=== PATIENT | female | born 1955 | race Caucasian/White ===

== ENCOUNTER 2016-05-14 12:18 | Emergency (ER) | payer OTHER ==
--- NOTE | 2016-05-14 15:15 | EDDOCDS ---
Nurse's Notes [facility] Name: Pratik Khoury Age: 61 yrs Sex: Female : 1955 Arrival Date: 05/14/2016 Time: 12:18 Bed TR8 Private MD: Johnna Hunter A Diagnosis: Pain in right hip-due to fall injury Presentation: 05/14 12:25 Presenting complaint: Patient states: Fell and landed on Right hip last week. pain rs3 radiates from right buttock to toes next day after the fall. Tried heat/Excedrin. not helped with pain. Adult Sepsis Screening: The patient does not have new or worsening altered mentation. Patient's respiratory rate is less than 22. Systolic blood pressure is greater than 100. Patient has a qSOFA score of 0- Negative Sepsis Screen. Suicide/Homicide risk assessment- the patient denies having any suicidal and/or homicidal ideations and does not present with any other emotional, behavioral or mental health complaints. Status: Patient is not a executive services administrator or dependent. Transition of care: patient was not received from another setting of care. 12:25 Acuity: PARMJIT Level 4 rs3 12:25 Method Of Arrival: Walkin/Carried/Asstd rs3 Triage Assessment: 12:28 General: Appears in no apparent distress. Pain: Location: right gluteus kecia. HIV rs3 screening NA for this visit Offered previously. Historical: - Allergies: PENICILLINS (Rash); Pvpxroj-Ysf-Cot Reductase Inhibitors (muscle cramping); - Home Meds: 1. Avapro 75 mg Oral tab once daily 2. Zoloft 50 mg Oral tab 1 tab once daily - PMHx: Depression; Hypertension; - PSHx: Hysterectomy; Oophorectomy - Left; Appendectomy; - Social history: Smoking status: Patient states former smoker of tobacco. No barriers to communication noted, The patient speaks fluent Argentine. - Family history: Not pertinent. - : The pt / caregiver states he / she is not on anticoagulants. Home medication list is obtained from family members. - Exposure Risk Screening:: None identified. Screenin:13 Screening information is obtained from the patient. Fall risk: No risks identified. rs3 Assistance ADL's: requires no assistance with activities of daily living. Abuse/DV Screen: The patient / caregiver reports he/she is: not in a situation that causes fear, pain or injury. Nutritional screening: No deficits noted. Advance Directives: Currently, there is no health care proxy. home support is adequate. Assessment: 15:12 General: Appears in no apparent distress, Behavior is appropriate for age, cooperative. rs3 Pain: Location: right gluteus kecia. Neurological: No deficits noted. Cardiovascular: Capillary refill < 3 seconds. Respiratory: Airway is patent. Derm: Skin is pink, warm & dry. Musculoskeletal: Signs and Symptoms of Compartment Syndrome: no signs of compartment syndrome. Vital Signs: 12:19 BP 158 / 86; Pulse 65; Resp 18 S; Temp 98.1(O); Pulse Ox 100% on R/A; Weight 76.66 kg dd6 (R); Height 5 ft. 0 in. (152.40 cm) (R); 12:19 Body Mass Index 33.01 (76.66 kg, 152.40 cm) dd6 Vitals: 12:19 Log In Time: May 14, 2016 at 12:17. dd6 ED Course: 12:18 Patient visited by Maykel Nava PCA. dd6 12:18 Johnna Hunter is Private Physician. dd6 12:18 Patient moved to Waiting dd6 12:20 Patient moved to Pre RCE dd6 12:27 Triage Initiated rs3 13:30 Patient moved to Triage 2 ar3 13:33 [facility] ef1 13:33 Fabiola Gilmore MD is Attending Physician. ef1 13:33 Patient visited by Carolynn Sotelo PA-C. ef1 14:08 Patient visited by Carolynn Sotelo PA-C. ef1 14:11 Johnna Hunter is Referral Physician. ef1 14:11 [facility]. ef1 14:17 Patient moved to [address] 14:26 [facility] Payment Agreement was scanned into [employer] and attached to record. mm15 15:13 The patient / caregiver is instructed regarding the plan of care and ED course. rs3 15:13 No IV's were initiated during this patient's visit. No procedures done that require rs3 assistance. Order Results: There are currently no results for this order. Outcome: 14:11 Discharge ordered by Provider. ef1 15:13 Discharge Assessment: patient administered narcotics - no. The following High Risk rs3 Discharge criteria are identified: None. Discharged to home with family. Condition: stable. Discharge instructions given to patient, Instructed on discharge instructions, follow up and referral plans. medication usage, Demonstrated understanding of instructions, medications, Pt was receptive of discharge instructions/ teaching. Prescriptions given X 3. No special radiology studies were completed. Property :Personal belongings accompany Pt. 15:13 Patient left the ED. rs3 Signatures: Nevaeh Hernandez, Maykel Mcmanus RN, SALES AGENT PROTECTIVE SERVICE SALES AGENT PROTECTIVE SERVICE dd6 Carolynn Sotelo PA-C PAJacindaC ef1 Dominique Garza RN RN rs3 Brianna Dunne, SALES AGENT PROTECTIVE SERVICE SALES AGENT PROTECTIVE SERVICE ar3 Ismael Castelan mm15 MTDD
--- NOTE | 2016-05-14 15:15 | EDDOCDS ---
Physician Documentation [facility] [place] Name: Pratik Khoury Age: 61 yrs Sex: Female : 1955 Arrival Date: 05/14/2016 Time: 12:18 Bed TR8 Private MD: Johnna Hunter A Disposition: 05/14/16 14:11 Discharged to Home/Self Care. Impression: Pain in right hip - due to fall injury. - Condition is Stable. - Discharge Instructions: Hip Pain. - Prescriptions for [place] 5- 325 mg Oral Tablet - take 1 tablet by ORAL route every 6 hours As needed MDD: 4 tabs; 10 tablet. Zanaflex 4 mg Oral Tablet - take 1 tablet by ORAL route At bedtime As needed Will cause drowsiness, do not take while driving/operating heavy machinery.; 20 tablet. Prednisone 20 mg Oral Tablet - take 2 tablet by ORAL route once daily for 5 days; 10 tablet. - Medication Reconciliation, Local Pharmacy Hours form. - Follow up: Johnna Hunter; When: 1 - 2 days; Reason: Recheck today's complaints, Continuance of care. Follow up: Emergency Department; Reason: Worsening of conditions. Follow up: [facility]; When: Call to arrange an appointment; Reason: Further diagnostic work-up, Recheck today's complaints, Continuance of care. - Problem is new. - Symptoms are unchanged. Historical: - Allergies: PENICILLINS (Rash); Npvpbgz-Bra-Yuj Reductase Inhibitors (muscle cramping); - Home Meds: 1. Avapro 75 mg Oral tab once daily 2. Zoloft 50 mg Oral tab 1 tab once daily - PMHx: Depression; Hypertension; - PSHx: Hysterectomy; Oophorectomy - Left; Appendectomy; - Social history: Smoking status: Patient states former smoker of tobacco. No barriers to communication noted, The patient speaks fluent Slovenian. - Family history: Not pertinent. - : The pt / caregiver states he / she is not on anticoagulants. Home medication list is obtained from family members. - Exposure Risk Screening:: None identified. Vital Signs: 05/14 12:19 BP 158 / 86; Pulse 65; Resp 18 S; Temp 98.1(O); Pulse Ox 100% on R/A; Weight 76.66 kg / dd6 169.01 lbs (R); Height 5 ft. 0 in. (152.40 cm) (R); 12:19 Body Mass Index 33.01 (76.66 kg, 152.40 cm) dd6 MDM: 12:34 Hip,AP,LAT to include Pelvis Ordered. EDMS 13:49 Financial registration complete. mm15 14:26 [facility] Payment Agreement was scanned into [employer] and attached to record. mm15 Signatures: Dispatcher [employer] EDMS Carolynn Sotelo, ALEJANDRO PAArnol ef1 Dominique Garza RN RN rs3 Ismael Castelan mm15 The chart was reviewed and I authenticate all verbal orders and agree with the evaluation and treatment provided.Attachments: 14:26 [facility] Payment Agreement mm15 MTDD
--- NOTE | 2016-05-15 11:16 | REP ---
Right hip two views and AP pelvis single view: Right hip two views: There is no fracture or dislocation. Mineralization joint space are normal. No calcifications or foreign bodies. Impression: Negative right hip. AP pelvis: There are no pelvic fractures. The sacroiliac articulations and right and left hip articulations are unremarkable. There are calcifications, likely phleboliths. Signed by Aidan Neves MD 05/14/2016 01:06 P
--- NOTE | 2016-05-16 16:15 | EDDOCDS ---
Physician Documentation [facility] Name: Pratik Khoury Age: 61 yrs Sex: Female : 1955 Arrival Date: 05/14/2016 Time: 12:18 Bed TR8 Private MD: Johnna Hunter A Disposition: 05/14/16 14:11 Discharged to Home/Self Care. Impression: Pain in right hip - due to fall injury. - Condition is Stable. - Discharge Instructions: Hip Pain. - Prescriptions for [place] 5- 325 mg Oral Tablet - take 1 tablet by ORAL route every 6 hours As needed MDD: 4 tabs; 10 tablet. Zanaflex 4 mg Oral Tablet - take 1 tablet by ORAL route At bedtime As needed Will cause drowsiness, do not take while driving/operating heavy machinery.; 20 tablet. Prednisone 20 mg Oral Tablet - take 2 tablet by ORAL route once daily for 5 days; 10 tablet. - Medication Reconciliation, Local Pharmacy Hours form. - Follow up: Johnna Hunter; When: 1 - 2 days; Reason: Recheck today's complaints, Continuance of care. Follow up: Emergency Department; Reason: Worsening of conditions. Follow up: [facility]; When: Call to arrange an appointment; Reason: Further diagnostic work-up, Recheck today's complaints, Continuance of care. - Problem is new. - Symptoms are unchanged. Historical: - Allergies: PENICILLINS (Rash); Mzjtcii-Els-Jcm Reductase Inhibitors (muscle cramping); - Home Meds: 1. Avapro 75 mg Oral tab once daily 2. Zoloft 50 mg Oral tab 1 tab once daily - PMHx: Depression; Hypertension; - PSHx: Hysterectomy; Oophorectomy - Left; Appendectomy; - Social history: Smoking status: Patient states former smoker of tobacco. No barriers to communication noted, The patient speaks fluent Tajik. - Family history: Not pertinent. - : The pt / caregiver states he / she is not on anticoagulants. Home medication list is obtained from family members. - Exposure Risk Screening:: None identified. Vital Signs: 05/14 12:19 BP 158 / 86; Pulse 65; Resp 18 S; Temp 98.1(O); Pulse Ox 100% on R/A; Weight 76.66 kg / dd6 169.01 lbs (R); Height 5 ft. 0 in. (152.40 cm) (R); 12:19 Body Mass Index 33.01 (76.66 kg, 152.40 cm) dd6 MDM: 12:34 Hip,AP,LAT to include Pelvis Ordered. EDMS 13:49 Financial registration complete. mm15 14:26 [facility] Payment Agreement was scanned into [employer] and attached to record. mm15 20:52 T-Sheet-- Draft Copy was scanned into [employer] and attached to record. klr Signatures: Dispatcher [employer] EDMS Carolynn Sotelo, PAJacindaC PA-C ef1 Dominique GarzaRN RN rs3 Ismael Castelan mm15 Kiah Bowie klr The chart was reviewed and I authenticate all verbal orders and agree with the evaluation and treatment provided.Attachments: 14:26 [facility] Payment Agreement mm15 20:52 T-Sheet-- Draft Copy klr Chart Complete MTDD
--- NOTE | 2016-05-16 16:15 | EDDOCDS ---
Physician Documentation [facility] Name: Pratik Khoury Age: 61 yrs Sex: Female : 1955 Arrival Date: 05/14/2016 Time: 12:18 Bed TR8 Private MD: Johnna Hunter A Disposition: 05/14/16 14:11 Discharged to Home/Self Care. Impression: Pain in right hip - due to fall injury. - Condition is Stable. - Discharge Instructions: Hip Pain. - Prescriptions for [place] 5- 325 mg Oral Tablet - take 1 tablet by ORAL route every 6 hours As needed MDD: 4 tabs; 10 tablet. Zanaflex 4 mg Oral Tablet - take 1 tablet by ORAL route At bedtime As needed Will cause drowsiness, do not take while driving/operating heavy machinery.; 20 tablet. Prednisone 20 mg Oral Tablet - take 2 tablet by ORAL route once daily for 5 days; 10 tablet. - Medication Reconciliation, Local Pharmacy Hours form. - Follow up: Johnna Hunter; When: 1 - 2 days; Reason: Recheck today's complaints, Continuance of care. Follow up: Emergency Department; Reason: Worsening of conditions. Follow up: [facility]; When: Call to arrange an appointment; Reason: Further diagnostic work-up, Recheck today's complaints, Continuance of care. - Problem is new. - Symptoms are unchanged. Historical: - Allergies: PENICILLINS (Rash); Tiybibw-Dvn-Jia Reductase Inhibitors (muscle cramping); - Home Meds: 1. Avapro 75 mg Oral tab once daily 2. Zoloft 50 mg Oral tab 1 tab once daily - PMHx: Depression; Hypertension; - PSHx: Hysterectomy; Oophorectomy - Left; Appendectomy; - Social history: Smoking status: Patient states former smoker of tobacco. No barriers to communication noted, The patient speaks fluent Kinyarwanda. - Family history: Not pertinent. - : The pt / caregiver states he / she is not on anticoagulants. Home medication list is obtained from family members. - Exposure Risk Screening:: None identified. Vital Signs: 05/14 12:19 BP 158 / 86; Pulse 65; Resp 18 S; Temp 98.1(O); Pulse Ox 100% on R/A; Weight 76.66 kg / dd6 169.01 lbs (R); Height 5 ft. 0 in. (152.40 cm) (R); 12:19 Body Mass Index 33.01 (76.66 kg, 152.40 cm) dd6 MDM: 12:34 Hip,AP,LAT to include Pelvis Ordered. EDMS 13:49 Financial registration complete. mm15 14:26 [facility] Payment Agreement was scanned into [employer] and attached to record. mm15 20:52 T-Sheet-- Draft Copy was scanned into [employer] and attached to record. klr Signatures: Dispatcher [employer] EDMS Carolynn Sotelo, PAJacindaC PA-C ef1 Dominique GarzaRN RN rs3 Ismael Castelan mm15 Kiah Bowie klr The chart was reviewed and I authenticate all verbal orders and agree with the evaluation and treatment provided.Attachments: 14:26 [facility] Payment Agreement mm15 20:52 T-Sheet-- Draft Copy klr Chart Complete MTDD
--- NOTE | 2016-05-16 16:15 | EDDOCDS ---
Nurse's Notes [facility] Name: Pratik Khoury Age: 61 yrs Sex: Female : 1955 Arrival Date: 05/14/2016 Time: 12:18 Bed TR8 Private MD: Johnna Hunter A Diagnosis: Pain in right hip-due to fall injury Presentation: 05/14 12:25 Presenting complaint: Patient states: Fell and landed on Right hip last week. pain rs3 radiates from right buttock to toes next day after the fall. Tried heat/Excedrin. not helped with pain. Adult Sepsis Screening: The patient does not have new or worsening altered mentation. Patient's respiratory rate is less than 22. Systolic blood pressure is greater than 100. Patient has a qSOFA score of 0- Negative Sepsis Screen. Suicide/Homicide risk assessment- the patient denies having any suicidal and/or homicidal ideations and does not present with any other emotional, behavioral or mental health complaints. Status: Patient is not a information services assistant or dependent. Transition of care: patient was not received from another setting of care. 12:25 Acuity: PARMJIT Level 4 rs3 12:25 Method Of Arrival: Walkin/Carried/Asstd rs3 Triage Assessment: 12:28 General: Appears in no apparent distress. Pain: Location: right gluteus kecia. HIV rs3 screening NA for this visit Offered previously. Historical: - Allergies: PENICILLINS (Rash); Lskiyxu-Mog-Uul Reductase Inhibitors (muscle cramping); - Home Meds: 1. Avapro 75 mg Oral tab once daily 2. Zoloft 50 mg Oral tab 1 tab once daily - PMHx: Depression; Hypertension; - PSHx: Hysterectomy; Oophorectomy - Left; Appendectomy; - Social history: Smoking status: Patient states former smoker of tobacco. No barriers to communication noted, The patient speaks fluent Montenegrin. - Family history: Not pertinent. - : The pt / caregiver states he / she is not on anticoagulants. Home medication list is obtained from family members. - Exposure Risk Screening:: None identified. Screenin:13 Screening information is obtained from the patient. Fall risk: No risks identified. rs3 Assistance ADL's: requires no assistance with activities of daily living. Abuse/DV Screen: The patient / caregiver reports he/she is: not in a situation that causes fear, pain or injury. Nutritional screening: No deficits noted. Advance Directives: Currently, there is no health care proxy. home support is adequate. Assessment: 15:12 General: Appears in no apparent distress, Behavior is appropriate for age, cooperative. rs3 Pain: Location: right gluteus kecia. Neurological: No deficits noted. Cardiovascular: Capillary refill < 3 seconds. Respiratory: Airway is patent. Derm: Skin is pink, warm & dry. Musculoskeletal: Signs and Symptoms of Compartment Syndrome: no signs of compartment syndrome. Vital Signs: 12:19 BP 158 / 86; Pulse 65; Resp 18 S; Temp 98.1(O); Pulse Ox 100% on R/A; Weight 76.66 kg dd6 (R); Height 5 ft. 0 in. (152.40 cm) (R); 12:19 Body Mass Index 33.01 (76.66 kg, 152.40 cm) dd6 Vitals: 12:19 Log In Time: May 14, 2016 at 12:17. dd6 ED Course: 12:18 Patient visited by Maykel Nava PCA. dd6 12:18 Johnna Hunter is Private Physician. dd6 12:18 Patient moved to Waiting dd6 12:20 Patient moved to Pre RCE dd6 12:27 Triage Initiated rs3 13:30 Patient moved to Triage 2 ar3 13:33 [facility] ef1 13:33 Fabiola Gilmore MD is Attending Physician. ef1 13:33 Patient visited by Carolynn Sotelo PA-C. ef1 14:08 Patient visited by Carolynn Sotelo PA-C. ef1 14:11 Johnna Hunter is Referral Physician. ef1 14:11 [facility]. ef1 14:17 Patient moved to TR8 jjr 14:26 [facility] Payment Agreement was scanned into [employer] and attached to record. mm15 15:13 The patient / caregiver is instructed regarding the plan of care and ED course. rs3 15:13 No IV's were initiated during this patient's visit. No procedures done that require rs3 assistance. 20:52 T-Sheet-- Draft Copy was scanned into [employer] and attached to record. klr 05/15 11:20 Hip,AP,LAT to include Pelvis Returned. EDMS Order Results: Radiology Order: Hip,AP,LAT to include Pelvis Test: Hip,AP,LAT to include Pelvis REASON FOR EXAMINATION: Trauma; Right hip two views and AP pelvis single view:; ; Right hip two views:; ; There is no fracture or dislocation. Mineralization joint space are normal. No; calcifications or foreign bodies.; ; Impression:; ; Negative right hip.; ; ; ; AP pelvis:; ; There are no pelvic fractures. The sacroiliac articulations and right and left; hip articulations are unremarkable.; ; There are calcifications, likely phleboliths.; ; ; Signed by; Aidan Neves MD 05/14/2016 01:06 P; Outcome: 05/14 14:11 Discharge ordered by Provider. ef1 15:13 Discharge Assessment: patient administered narcotics - no. The following High Risk rs3 Discharge criteria are identified: None. Discharged to home with family. Condition: stable. Discharge instructions given to patient, Instructed on discharge instructions, follow up and referral plans. medication usage, Demonstrated understanding of instructions, medications, Pt was receptive of discharge instructions/ teaching. Prescriptions given X 3. No special radiology studies were completed. Property :Personal belongings accompany Pt. 15:13 Patient left the ED. rs3 Signatures: Dispatcher [employer] EDCA Nevaeh Hernandez, Maykel Mcmanus RN, CARBON PAPER COATING MACHINE SETTER CARBON PAPER COATING MACHINE SETTER dd6 Carolynn Sotelo PA-C PAArnol ef1 Dominique Garza RN RN rs3 Brianna Dunne, CARBON PAPER COATING MACHINE SETTER CARBON PAPER COATING MACHINE SETTER ar3 Ismael Castelan mm15 Kiah Bowie Chart Complete MTDD
== END 2016-05-14 15:13 | disposition home or self-care (01) ==
LOC: M ED 12:18
DX: M25.551 Pain in right hip (principal); Z91.81 History of falling; I10 Essential (primary) hypertension; F32.9 Major depressive disorder, single episode, unspecified; Z79.899 Other long term (current) drug therapy; Z88.0 Allergy status to penicillin; Z88.8 Allergy status to other drugs, medicaments and biological substances; Z87.891 Personal history of nicotine dependence

== ENCOUNTER → 2016-11-29 | Outpatient (REF) | payer OTHER ==
[2016-11-29 15:07] LABS: ANION GAP 10 MEQ/L (8-16); BLOOD UREA NITROGEN 18 MG/DL (7-18); CALCIUM LEVEL 9.4 MG/DL (8.8-10.2); CARBON DIOXIDE LEVEL 26 MEQ/L (21-32); CHLORIDE LEVEL 108 MEQ/L (98-107); CHOLESTEROL LEVEL 215 MG/DL (<200); CREATININE FOR GFR 0.71 MG/DL (0.55-1.02); GLOMERULAR FILTRATION RATE > 60.0 (>45); GLUCOSE, FASTING 123 MG/DL (80-110); PHOSPHORUS LEVEL 3.5 MG/DL (2.5-4.9); POTASSIUM SERUM 4.5 MEQ/L (3.5-5.1); SODIUM LEVEL 144 MEQ/L (136-145); TRIGLYCERIDES LEVEL 165 MG/DL (<150)
== END ==
LOC: M LABDRAW1 10:46
PROVIDERS: ATTEND Nurse Practitioner Family
DX: E78.2 Mixed hyperlipidemia (principal); I10 Essential (primary) hypertension

== ENCOUNTER → 2017-04-22 | Outpatient (CLI) | payer OTHER ==
[2017-04-22 18:03] LABS: BASO # 0.1 10^3/uL (0.0-0.2); BASO % 0.6 % (0.0-1.0); EOS # 0.1 10^3/uL (0.0-0.50); EOS % 1.6 % (0.0-3.0); HEMOGLOBIN 13.1 g/dl (12.0-16.0); IMMATURE GRANULOCYTE % 0.3 % (0-0); LYMPH # 2.2 10^3/uL (1.5-4.5); LYMPH % 27.1 % (24.0-44.0); MEAN CORPUSCULAR HEMOGLOBIN 30.1 pg (27.0-33.0); MEAN CORPUSCULAR VOLUME 94.3 fl (80.0-96.0); MONO # 0.6 10^3/uL (0.0-0.8); MONO % 7.2 % (0.0-5.0); NEUTROPHILS % 63.2 % (36.0-66.0); PLATELET COUNT, AUTOMATED 367 10^3/uL (150-450); RED BLOOD COUNT 4.35 10^6/uL (4.00-5.40); RED CELL DISTRIBUTION WIDTH 12.6 % (11.5-14.5); WHITE BLOOD COUNT 7.9 10^3/uL (4.0-10.0)
[2017-04-22 18:24] LABS: ALBUMIN 4.3 GM/DL (3.2-5.2); ALBUMIN/GLOBULIN RATIO 1.43 (1.00-1.93); ALKALINE PHOSPHATASE 68 U/L (45-117); ALT/SGPT 18 U/L (12-78); ANION GAP 8 MEQ/L (8-16); AST/SGOT 14 U/L (7-37); BILIRUBIN,TOTAL 0.4 MG/DL (0.2-1.0); BLOOD UREA NITROGEN 18 MG/DL (7-18); CALCIUM LEVEL 9.4 MG/DL (8.8-10.2); CARBON DIOXIDE LEVEL 26 MEQ/L (21-32); CHLORIDE LEVEL 110 MEQ/L (98-107); CHOLESTEROL LEVEL 237 MG/DL (<200); CHOLESTEROL RISK RATIO 3.646 (<5); CREATININE FOR GFR 0.71 MG/DL (0.55-1.02); GLOMERULAR FILTRATION RATE > 60.0 (>45); GLUCOSE, FASTING 85 MG/DL (80-110); HDL CHOLESTEROL 65 MG/DL (>40); LDL CHOLESTEROL 147.8 MG/DL (<100); NON-HDL-C 172 MG/DL; POTASSIUM SERUM 4.7 MEQ/L (3.5-5.1); SODIUM LEVEL 144 MEQ/L (136-145); TOTAL PROTEIN 7.3 GM/DL (6.4-8.2); TRIGLYCERIDES LEVEL 121 MG/DL (<150)
== END ==
LOC: M WUC 12:12
DX: I10 Essential (primary) hypertension (principal)
CPT/HCPCS: 80053

== ENCOUNTER → 2017-10-22 | Outpatient (REF) | payer OTHER ==
[2017-10-22 14:27] LABS: ALBUMIN 4.2 GM/DL (3.2-5.2); ANION GAP 7 MEQ/L (8-16); BLOOD UREA NITROGEN 16 MG/DL (7-18); CALCIUM LEVEL 9.1 MG/DL (8.8-10.2); CARBON DIOXIDE LEVEL 28 MEQ/L (21-32); CHLORIDE LEVEL 110 MEQ/L (98-107); CHOLESTEROL LEVEL 211 MG/DL (<200); CHOLESTEROL RISK RATIO 3.459 (<5); CREATININE FOR GFR 0.74 MG/DL (0.55-1.30); GLOMERULAR FILTRATION RATE > 60.0 (>45); GLUCOSE, FASTING 82 MG/DL (70-100); HDL CHOLESTEROL 61 MG/DL (>40); LDL CHOLESTEROL 127.6 MG/DL (<100); NON-HDL-C 150 MG/DL; PHOSPHORUS LEVEL 3.6 MG/DL (2.5-4.9); SODIUM LEVEL 145 MEQ/L (136-145); TRIGLYCERIDES LEVEL 112 MG/DL (<150)
== END ==
LOC: M LABDRAW1 13:10
DX: I10 Essential (primary) hypertension (principal); E78.2 Mixed hyperlipidemia

== ENCOUNTER → 2018-01-21 | Outpatient (CLI) | payer OTHER | LOC: M WHC 08:47 | DX: Z12.31 Encounter for screening mammogram for malignant neoplasm of breast (principal); N60.31 Fibrosclerosis of right breast; N60.32 Fibrosclerosis of left breast | CPT/HCPCS: 77067 ==

== ENCOUNTER 2018-06-21 04:50 | Inpatient (IN) | payer MEDICARE, OTHER ==
[~2018-06-21] VITALS: Ht 152.4 cm; Wt 78.7 kg
[2018-06-21] MEDS ORDERED: IRBE75TA5 PO (05:09)
[2018-06-21] MEDS ORDERED: CHLO125TA PO (05:09)
[2018-06-21 05:50] LABS: BASO # 0.1 10^3/uL (0.0-0.2); BASO % 0.3 % (0.0-1.0); HEMATOCRIT 42.7 % (36.0-47.0); HEMOGLOBIN 14.3 g/dl (12.0-15.5); LYMPH % 5.8 % (24.0-44.0); MEAN CORPUSCULAR HEMOGLOBIN 30.1 pg (27.0-33.0); MEAN CORPUSCULAR HGB CONC 33.5 g/dl (32.0-36.5); MEAN CORPUSCULAR VOLUME 89.9 fl (80.0-96.0); MONO # 0.5 10^3/uL (0.0-0.8); MONO % 2.8 % (0.0-5.0); NEUTROPHILS # 15.5 10^3/uL (1.8-7.7); NEUTROPHILS % 90.6 % (36.0-66.0); PLATELET COUNT, AUTOMATED 399 10^3/uL (150-450); RED BLOOD COUNT 4.75 10^6/uL (4.00-5.40); WHITE BLOOD COUNT 17.1 10^3/uL (4.0-10.0)
[2018-06-21] MEDS ORDERED: MORPHINE 4 MG/ML 1ML VIAL/SYRINGE (J2270) IV ONE (06:00)
[2018-06-21] MEDS ORDERED: METOCLOPRAMIDE INJ 10MG/2ML VIAL (J2765) IV ONE (06:00)
[2018-06-21] MEDS ORDERED: NS 1,000 ML IV ONE (06:00)
--- NOTE | 2018-06-21 06:11 | REP ---
Clinical: Acute chest pain . Comparison: 08/07/2014 . Technique: PA and lateral. Findings: The mediastinum and cardiac silhouette are normal. The lung bernal are clear and without acute consolidation, effusion, or pneumothorax. The skeletal structures are intact and normal. Impression: 1. No acute cardiopulmonary process. Electronically Signed by Hesham Pereira MD 06/21/2018 06:03 A
[2018-06-21 06:17] LABS: ALBUMIN 4.5 GM/DL (3.2-5.2); ALT/SGPT 30 U/L (12-78); BILIRUBIN,DIRECT 0.1 MG/DL (0.0-0.2); BILIRUBIN,TOTAL 0.4 MG/DL (0.2-1.0); BLOOD UREA NITROGEN 18 MG/DL (7-18); CALCIUM LEVEL 9.7 MG/DL (8.8-10.2); CARBON DIOXIDE LEVEL 24 MEQ/L (21-32); CHLORIDE LEVEL 104 MEQ/L (98-107); CPK CREATINE PHOSPHOKINASE 82 U/L (26-192); CREATININE FOR GFR 0.94 MG/DL (0.55-1.30); GLOMERULAR FILTRATION RATE > 60.0 (>45); GLUCOSE, FASTING 179 MG/DL (70-100); LIPASE 71 U/L (73-393); MB/CK RELATIVE INDEX 1.34 (< OR =4); POTASSIUM SERUM 3.4 MEQ/L (3.5-5.1); SODIUM LEVEL 140 MEQ/L (136-145); TOTAL PROTEIN 8.2 GM/DL (6.4-8.2); TROPONIN I < 0.02 NG/ML (< 0.10)
--- NOTE | 2018-06-21 07:14 | ECGEPIP ---
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
[2018-06-21] MEDS ORDERED: ISOVUE-370 76% 100ML VIAL (Q9967) As Ordered ONE (07:41)
[2018-06-21] MEDS: GASTROGRAFIN SOLUTION 30ML PO SCH ×2 (07:44→08:14)
[2018-06-21] MEDS ORDERED: POTASSIUM CHLORIDE 10 MEQ SR TABLET PO ONE (08:00)
--- NOTE | 2018-06-21 09:52 | REP ---
CT ABDOMEN AND PELVIS WITH ORAL AND IV CONTRAST: TECHNIQUE: Axial contrast enhanced images from the lung bases to the pubic symphysis using 100 mL Isovue 370 intravenous contrast material with multiplanar reformations. Visualized lung bases demonstrate no infiltrate. There is a small hiatal hernia. A couple of tiny cysts are seen in the liver. The spleen, adrenals and pancreas appear normal. A couple of tiny renal cysts are noted. There is no hydronephrosis. There are mild atherosclerotic calcification of the abdominal aorta without aneurysm. There is no adenopathy. There is no free air. There is a very small amount of free fluid scattered in the abdomen and pelvis. The gallbladder is grossly unremarkable without biliary dilatation. There is moderate dilatation of the small bowel loops predominately distal jejunum and ileum. There appears to be a zone of transition caliber to a more collapsed appearance of the very distal end of the ileum, with that zone of transition in the right pelvis. Small amount of air and fluid is scattered throughout a nondistended colon. No pelvic mass is seen. IMPRESSION: Findings consistent with distal small bowel obstruction with transition zone in the right pelvis. Very mild scattered free fluid in the abdomen and pelvis. No free air. Electronically Signed by Aidan Lagos MD 06/24/2018 10:56 A
[2018-06-21 10:25] LABS: APPEARANCE, URINE CLEAR (CLEAR); BACTERIA, URINE AUTO NEGATIVE (NEGATIVE); BILIRUBIN, URINE AUTO NEGATIVE (NEGATIVE); BLOOD, URINE BLOOD 1+ (NEGATIVE); COLOR, URINE STRAW (YELLOW); GLUCOSE, URINE (UA) AUTO NEGATIVE (NEGATIVE); KETONE, URINE AUTO NEGATIVE (NEGATIVE); LEUKOCYTE ESTERASE, URINE AUTO NEGATIVE (NEGATIVE); NITRITE, URINE AUTO NEGATIVE (NEGATIVE); PROTEIN, URINE AUTO NEGATIVE (NEGATIVE); RBC, URINE AUTO 3 /HPF (0-3); SQUAMOUS EPITHELIAL CELL UR AU 0 /HPF (0-6); UROBILINOGEN, URINE AUTO 0.2 mg/dL (0.0-2.0); WBC, URINE AUTO 1 /HPF (0-3)
[2018-06-21 10:28] LABS: SPECIFIC GRAVITY URINE AUTO >1.060 (1.002-1.035)
[2018-06-21] MEDS ORDERED: ONDANSETRON 4MG/2ML VIAL (J2405) IV PRN (11:45)
[2018-06-21] MEDS ORDERED: METOCLOPRAMIDE INJ 10MG/2ML VIAL (J2765) IV PRN (11:45)
[2018-06-21] MEDS ORDERED: PROMETHAZINE INJ 25 MG/ML VIAL (J2550) IV PRN (11:45)
[2018-06-21] MEDS ORDERED: MORPHINE 4 MG/ML 1ML VIAL/SYRINGE (J2270) IV PRN (11:45)
[2018-06-21] MEDS ORDERED: VIAC8.5C PO (11:51)
[2018-06-21] MEDS ORDERED: CHLO25TA PO (11:51)
[2018-06-21] MEDS ORDERED: COLA100C5 PO (11:51)
[2018-06-21] MEDS ORDERED: VITMTA PO (11:51)
[2018-06-21] MEDS ORDERED: FLAX10002 PO (11:51)
[2018-06-21] MEDS: MORPHINE 4 MG/ML 1ML VIAL/SYRINGE (J2270) IV PRN ×2 (13:33→18:50)
[2018-06-21 14:10] VITALS: BP 164/70
[2018-06-21] MEDS: NS 1,000 ML IV SCH ×2 (15:00→23:06)
[2018-06-21] MEDS: PANTOPRAZOLE 40MG INJ (PROTONIX) (C9113) IV SCH (15:01)
[2018-06-21] MEDS: CHLORASEPTIC SPRAY MT PRN ×3 (15:01→20:00)
[2018-06-21 16:00] VITALS: BP 166/82
[2018-06-21] MEDS: CEPACOL LOZENGE PO PRN ×4 (16:00→23:06)
--- NOTE | 2018-06-21 18:08 | HPE ---
DATE OF ADMISSION: 06/21/2018 BRIEF HISTORY OF PRESENT ILLNESS: The patient is a 63-year-old female who over the last 4-5 hours prior to admission she had developed severe left-sided abdominal pain, crampy abdominal pain with nausea, vomiting. She stated that the pain radiated up into her chest / epigastric area and was concerned of cardiac issues and thus came into the emergency room for additional treatment. She has not had any diarrhea and no constipation issues. She did have some bowel movements yesterday but developed this acute onset of abdominal pain and discomfort on the day of admission. She has not had any blood per rectum. PERSONAL HISTORY: She has a personal history of hysterectomy for uterine cervical disease has had a previous oophorectomy (bilateral) with a appendectomy. She has history of hypertension, history of depression and has had no previous history of small bowel obstructions. MEDICATIONS: chlorthalidone 12.5 mg by mouth daily, Colace 100 mg by mouth a day, multivitamin one by mouth daily, flaxseed oil 1 by mouth daily, Irbesartan 75 mg by mouth daily, vitamin C tablets. PHYSICAL EXAMINATION: Physical exam reveals a 63-year-old female who looks younger than stated age. HEENT is unremarkable. Neck: Supple without adenopathy. Lungs are clear to auscultation without crackles, wheezes or rhonchi. Heart is regular without murmur. Abdomen is softly distended, nontender without guarding without rebound without peritoneal signs. Extremities: Warm, well-perfused. IMPRESSION AND PLAN: The patient has evidence of a small bowel obstruction on CT scan, seems to be a distal small bowel obstruction. At this point my recommendation is to make the patient nothing by mouth and IV fluids, NG tube of low intermittent suction and we will see how she does over the next 12-24 hours. At this point I am not seeing any evidence of infectious etiology. No white count, no enteritis. No evidence of perforation. However white count is slightly elevated. White count is elevated at this time and will need to see how this comes down. I anticipate this is probably demargination from pain and discomfort and stress associated with this acute onset of discomfort. If the white count is persistently elevated, we may have to consider a infectious etiology as well, although that seems less likely given the presentation on CT scan. At this point her abdominal exam is not consistent with a bowel compromise or peritoneal signs and thus I do feel it is warranted to watch her with an NG tube and keep her.
[2018-06-21 20:00] VITALS: BP 152/73
[2018-06-21 23:14] VITALS: BP 140/67
[2018-06-22] MEDS: CEPACOL LOZENGE PO PRN ×6 (01:06→20:00)
[2018-06-22 04:00] VITALS: BP 144/67
[2018-06-22 07:22] LABS: HEMATOCRIT 39.3 % (36.0-47.0); HEMOGLOBIN 12.6 g/dl (12.0-15.5); MEAN CORPUSCULAR HEMOGLOBIN 30.4 pg (27.0-33.0); MEAN CORPUSCULAR HGB CONC 32.1 g/dl (32.0-36.5); MEAN CORPUSCULAR VOLUME 94.9 fl (80.0-96.0); PLATELET COUNT, AUTOMATED 351 10^3/uL (150-450); RED BLOOD COUNT 4.14 10^6/uL (4.00-5.40); WHITE BLOOD COUNT 9.9 10^3/uL (4.0-10.0)
[2018-06-22 07:40] LABS: BLOOD UREA NITROGEN 15 MG/DL (7-18); CALCIUM LEVEL 8.2 MG/DL (8.8-10.2); CARBON DIOXIDE LEVEL 27 MEQ/L (21-32); CHLORIDE LEVEL 109 MEQ/L (98-107); CREATININE FOR GFR 0.76 MG/DL (0.55-1.30); GLOMERULAR FILTRATION RATE > 60.0 (>45); GLUCOSE, FASTING 104 MG/DL (70-100); POTASSIUM SERUM 3.5 MEQ/L (3.5-5.1); SODIUM LEVEL 142 MEQ/L (136-145)
[2018-06-22 08:00] VITALS: BP 173/81
[2018-06-22] MEDS ORDERED: PILL CRUSHER/CUTTER 1 EACH XX PRN (08:15)
--- NOTE | 2018-06-22 09:26 | REP ---
Acute abdominal series three views including PA chest and supine upright abdomen: PA chest: Comparison is 07/03/2018. I suspect there is a small right pleural effusion as an interval change. Lung bernal otherwise clear. Cardiac size is normal. The krishan, mediastinum, skeletal structures are unremarkable. There is no free subdiaphragmatic air. Impression: Probable small right pleural effusion. Abdomen, supine upright views: There is opacification of the descending colon and sigmoid colon, likely from bowel contrast administered for the abdomen CT dated 06/21/2018. There is moderate distension of proximal small bowel loops. The distal small bowel loops are nondistended. The colon is not distended. There are no air-fluid levels on the upright view. The tip of the nasogastric tube is at the esophagogastric junction. Impression: Nonspecific bowel gas pattern. Electronically Signed by Aidan Neves MD 06/22/2018 09:18 A
[2018-06-22] MEDS: PANTOPRAZOLE 40MG INJ (PROTONIX) (C9113) IV SCH (09:39)
[2018-06-22] MEDS: IRBESARTAN 150 MG TAB PO SCH (09:39)
[2018-06-22] MEDS: CHLORTHALIDONE 12.5MG PER 1/2 TABLET PO SCH ×2 (09:39→19:59)
[2018-06-22] MEDS: NS 1,000 ML IV SCH ×4 (09:39→21:24)
[2018-06-22 12:00] VITALS: BP 135/64
--- NOTE | 2018-06-22 12:29 | IPN ---
DATE OF SERVICE: 06/22/2018 CHIEF COMPLAINT: Small-bowel obstruction. The patient overall seems to be making some adequate progress from x-ray standpoint. She did have a little bit of flatus this morning but no bowel movement. No fevers or chills. States that the abdominal pain was a little bit better although had some cramps later on this morning. White count dropped back to normal this morning and she has been afebrile. On her physical exam, abdomen is less distended and without tenderness. No guarding. No rebound. No peritoneal signs. IMPRESSION AND PLAN: Patient has improvement of her x-ray showing some contrast down into the large bowel all consistent with partial obstruction/starting to resolve her small bowel obstruction. Thus at this point, we will keep her n.p.o. I do feel that her NG tube needs to be moved around a little bit, probably advanced a little bit given its location and will see how she does with this. I anticipate it may be another day or so before we see resolution of her bowel obstruction. She understands our current plan and agrees with NG tube decompression at this time.
[2018-06-22] MEDS: KETOROLAC 30 MG/ML VIAL (J1885) IV PRN (13:32)
[2018-06-22] MEDS: MORPHINE 4 MG/ML 1ML VIAL/SYRINGE (J2270) IV PRN ×2 (14:34→21:15)
[2018-06-22] MEDS: CHLORASEPTIC SPRAY MT PRN (15:12)
[2018-06-22 16:00] VITALS: BP 133/63
[2018-06-22 19:58] VITALS: BP 133/60
[2018-06-22 23:59] VITALS: BP 121/58
[2018-06-23 04:00] VITALS: BP 131/60
[2018-06-23] MEDS: CEPACOL LOZENGE PO PRN ×2 (04:30→12:08)
[2018-06-23 06:50] LABS: MEAN CORPUSCULAR HEMOGLOBIN 30.3 pg (27.0-33.0); MEAN CORPUSCULAR HGB CONC 32.4 g/dl (32.0-36.5); MEAN CORPUSCULAR VOLUME 93.7 fl (80.0-96.0); PLATELET COUNT, AUTOMATED 297 10^3/uL (150-450); RED BLOOD COUNT 3.63 10^6/uL (4.00-5.40); WHITE BLOOD COUNT 10.1 10^3/uL (4.0-10.0)
[2018-06-23 07:03] LABS: BLOOD UREA NITROGEN 12 MG/DL (7-18); CALCIUM LEVEL 7.8 MG/DL (8.8-10.2); CARBON DIOXIDE LEVEL 23 MEQ/L (21-32); CHLORIDE LEVEL 110 MEQ/L (98-107); GLOMERULAR FILTRATION RATE > 60.0 (>45); GLUCOSE, FASTING 72 MG/DL (70-100); POTASSIUM SERUM 3.1 MEQ/L (3.5-5.1); SODIUM LEVEL 141 MEQ/L (136-145)
--- NOTE | 2018-06-23 08:36 | REP ---
Abdomen two-view supine upright: Comparison is 06/22/2018. The tip of the nasogastric tube is in the gastric fundus. There is no bowel distension. The moderate distension of proximal small bowel loops on the comparison study has resolved. There is no colonic distension. The colonic lumen is again opacified from bowel contrast as previously. The skeletal structures and soft tissues are otherwise unremarkable. Impression: There is no bowel distension. The moderate small bowel distension identified on the comparison study has resolved. Electronically Signed by Aidan Neves MD 06/23/2018 08:28 A
[2018-06-23 08:45] VITALS: BP 166/70
[2018-06-23] MEDS: IRBESARTAN 150 MG TAB PO SCH (08:46)
[2018-06-23] MEDS: PANTOPRAZOLE 40MG INJ (PROTONIX) (C9113) IV SCH (08:46)
[2018-06-23] MEDS: CHLORASEPTIC SPRAY MT PRN ×2 (10:00→13:00)
[2018-06-23 12:00] VITALS: BP 158/60
--- NOTE | 2018-06-23 12:26 | IPN ---
DATE OF SERVICE: 06/23/2018 Patient seems to be doing much better overnight. She has had four small bowel movements this morning and states that she has some flatus as well. Does not have any nausea or vomiting. She has been drinking a fair bit of fluids and is wondering if that is where the NG tube increase or persistently high output has been coming from. Otherwise she is not having any nausea, no crampy abdominal pain. Still feels as though she might be a little bit bloated. She is not having any fevers or chills. Although her white count is slightly elevated today at 10,000. But her abdomen is soft, nontender, nondistended. X-rays show that she has "resolved her small bowel obstruction. More air and stool in the colon with contrast in the colon and some of the colon has evacuated the contrast. IMPRESSION AND PLAN: The patient seems to be resolving her small bowel obstruction although at this point given that she is slightly distended and having some increase or persistence of some elevated NG tube output, I would like to clamp her NG tube for the next 4 hours. Will recheck it at that point. I have asked her not drink so much over the next 4 hours and if her NG tube output is minimal at that time, we will take out her NG tube and start her on a clear liquid diet. We will see how she does overnight and probably start her on a regular diet tomorrow and discharge to home if she is doing well.
[2018-06-23] MEDS: NS 1,000 ML IV SCH (12:40)
[2018-06-23] MEDS: KETOROLAC 30 MG/ML VIAL (J1885) IV PRN (15:29)
[2018-06-23 16:00] VITALS: BP 155/67
[2018-06-23 20:00] VITALS: BP 141/61
[2018-06-23] MEDS: CHLORTHALIDONE 12.5MG PER 1/2 TABLET PO SCH (20:36)
[2018-06-24] VITALS: BP 129/60
[2018-06-24 04:00] VITALS: BP 141/65
[2018-06-24 07:56] LABS: HEMATOCRIT 34.4 % (36.0-47.0); HEMOGLOBIN 11.1 g/dl (12.0-15.5); MEAN CORPUSCULAR HEMOGLOBIN 29.9 pg (27.0-33.0); MEAN CORPUSCULAR HGB CONC 32.3 g/dl (32.0-36.5); MEAN CORPUSCULAR VOLUME 92.7 fl (80.0-96.0); PLATELET COUNT, AUTOMATED 308 10^3/uL (150-450); RED BLOOD COUNT 3.71 10^6/uL (4.00-5.40); WHITE BLOOD COUNT 6.1 10^3/uL (4.0-10.0)
[2018-06-24 08:00] VITALS: BP 144/65
[2018-06-24 08:58] LABS: BLOOD UREA NITROGEN 8 MG/DL (7-18); CALCIUM LEVEL 8.3 MG/DL (8.8-10.2); CARBON DIOXIDE LEVEL 24 MEQ/L (21-32); CHLORIDE LEVEL 108 MEQ/L (98-107); CREATININE FOR GFR 0.64 MG/DL (0.55-1.30); GLOMERULAR FILTRATION RATE > 60.0 (>45); GLUCOSE, FASTING 92 MG/DL (70-100); SODIUM LEVEL 141 MEQ/L (136-145)
[2018-06-24 09:00] LABS: POTASSIUM SERUM 2.9 MEQ/L (3.5-5.1)
--- NOTE | 2018-06-24 09:14 | REP ---
Supine upright abdomen three views: Comparison is 06/23/2018. The nasogastric tube has been removed. There are are a few mildly distended small bowel loops with air-fluid levels in the upper abdomen in a nonspecific pattern, possibly ileus. There is no colonic distension. Intraluminal bowel contrast is again noted in the descending colon, decreased in volume. There is mild lumbar scoliosis convex right, unchanged. Impression: Mild nonspecific proximal small bowel distension, possibly ileus. There is no distension of the mid and distal small bowel. The nasogastric tube has been removed. Electronically Signed by Aidan Neves MD 06/24/2018 09:06 A
[2018-06-24] MEDS: PANTOPRAZOLE 40MG INJ (PROTONIX) (C9113) IV SCH (09:18)
[2018-06-24] MEDS: CHLORTHALIDONE 12.5MG PER 1/2 TABLET PO SCH (09:18)
[2018-06-24 09:19] VITALS: BP 144/65
[2018-06-24] MEDS: IRBESARTAN 150 MG TAB PO SCH (09:19)
[2018-06-24] MEDS ORDERED: POTASSIUM CHLORIDE 10 MEQ SR TABLET PO ONE (10:00)
== END 2018-06-24 13:00 | disposition home or self-care (01) | DRG 390 ==
LOC: M ED 04:50 → M ED INP 11:39 → M PED 14:15
PROVIDERS: ADMIT Surgery; ATTEND Surgery
DX: K56.600 Partial intestinal obstruction, unspecified as to cause (principal)

== ENCOUNTER 2018-08-15 10:22 | Day surgery (SDC) | payer MEDICARE, OTHER ==
[~2018-08-15] VITALS: Ht 152.4 cm; Wt 74.4 kg
[~2018-08-15 10:22] MED LIST: CHLO125TA PO; CHLO25TA PO; COLA100C5 PO; FLAX10002 PO; IRBE75TA5 PO; NS 1,000 ML IV ONE; VIAC8.5C PO; VITMTA PO
[2018-08-15] MEDS ORDERED: LIDOCAINE 2% INJ 100 MG/5 ML SDV (FOR ANES.) As Ordered ONE (11:53)
[2018-08-15] MEDS ORDERED: PROPOFOL 200 MG/20 ML VIAL As Ordered ONE (11:53)
--- NOTE | 2018-08-15 12:30 | ROOR ---
Patient Name: Pratik Khoury Procedure Date: 08/15/2018 12:11 PM Date of : 1955 Age: 63 Room: [facility] Gender: Female Note Status: Finalized Procedure: Colonoscopy Indications: Screening for colorectal malignant neoplasm Providers: Adama Plascencia Jr, MD Referring MD: KIRSTIN TEJEDA NP Requesting Provider: Medicines: Propofol per Anesthesia Complications: No immediate complications. Procedure: Pre-Anesthesia Assessment: - Prior to the procedure, a History and Physical was performed, and patient medications and allergies were reviewed. The patient is competent. The risks and benefits of the procedure and the sedation options and risks were discussed with the patient. All questions were answered and informed consent was obtained. Patient identification and proposed procedure were verified by the physician and the nurse in the pre-procedure area and in the procedure room. Mental Status Examination: alert and oriented. Airway Examination: normal oropharyngeal airway and neck mobility. Respiratory Examination: clear to auscultation. CV Examination: normal. ASA Grade Assessment: II - A patient with mild systemic disease. After reviewing the risks and benefits, the patient was deemed in satisfactory condition to undergo the procedure. The anesthesia plan was to use moderate sedation / analgesia (conscious sedation). Immediately prior to administration of medications, the patient was re-assessed for adequacy to receive sedatives. The heart rate, respiratory rate, oxygen saturations, blood pressure, adequacy of pulmonary ventilation, and response to care were monitored throughout the procedure. The physical status of the patient was re-assessed after the procedure. The Colonoscope was introduced through the anus and advanced to the ileocecal valve. The colonoscopy was performed without difficulty. The patient tolerated the procedure well. The quality of the bowel preparation was adequate. Findings: The rectum, sigmoid colon, descending colon, transverse colon, ascending colon, cecum and ileocecal valve appeared normal. Impression: - The rectum, sigmoid colon, descending colon, transverse colon, ascending colon, cecum and ileocecal valve are normal. - No specimens collected. Recommendation: - Discharge patient to home (ambulatory). - Repeat colonoscopy in 10 years for screening purposes. Adama Plascencia MD Adama Plascencia Jr, MD 08/15/2018 12:29:39 PM Electronically signed by Adama Plascencia Jr, MD Number of Addenda: 0 Note Initiated On: 08/15/2018 12:11 PM Estimated Blood Loss: Estimated blood loss: none.
[2018-08-15 12:55] VITALS: BP 139/72
== END 2018-08-15 13:08 | disposition home or self-care (01) ==
LOC: M OPP 10:22
PROVIDERS: ATTEND Surgery
DX: Z12.11 Encounter for screening for malignant neoplasm of colon (principal)

== ENCOUNTER → 2019-02-14 | Outpatient (CLI) | payer MEDICARE, OTHER ==
[~2019-02-14] MED LIST changes: -NS 1,000 ML IV ONE; -VIAC8.5C PO; +VIACTIV 500-5001 CHW PO
--- NOTE | 2019-02-14 09:07 | REPMRS ---
Patient History The patient states she had a clinical breast exam in 12/2018. No known family history of cancer. Took estrogen for 20 years. Digital Woman Screen Mammo: February 14, 2019 - Exam #: [id number] Bilateral CC and MLO view(s) were taken. Technologist: Esha Gorman, Technologist Prior study comparison: January 21, 2018, bilateral digital woman screen mammo performed at [facility]. January 15, 2015, digital woman screen mammo performed at [facility]. FINDINGS: The breast tissue is heterogeneously dense. This may lower the sensitivity of mammography. There is a moderate amount of heterogeneously dense fibroglandular tissue which is fairly symmetric. There is no interval development of dominant mass, architectural distortion, or grouped microcalcification typical of malignancy. There has been no change in the appearance of the mammogram from the prior studies. 3-D tomosynthesis shows no additional findings. Assessment: BI-RADS/ACR category 1 mammogram. Negative Mammogram. Recommendation Routine screening mammogram of both breasts in 1 year (for women over age 40). This patient's Lifetime Breast Cancer RIsk is estimated at 5.2 %. This mammogram was interpreted with the aid of an FDA-approved computer-aided dectection system. Electronically Signed By: Daniel De La Fuente MD 02/14/19 [id number]
== END ==
LOC: M WHC 08:13
PROVIDERS: ATTEND Nurse Practitioner Family
DX: Z12.31 Encounter for screening mammogram for malignant neoplasm of breast (principal)

== ENCOUNTER → 2020-02-16 | Outpatient (CLI) | payer MEDICARE, OTHER ==
[~2020-02-16] MED LIST changes: +IRBE75TA4 PO; -IRBE75TA5 PO
--- NOTE | 2020-02-16 10:47 | REPMRS ---
Patient History The patient states she had a clinical breast exam in July 2019. No known family history of cancer. Took estrogen for 20 years. 3D TOMOSYNTHESIS WAS PERFORMED. [facility] lifetime risk for breast cancer is 5.0%. Volpara breast density b. Digital Woman Screen Mammo: February 16, 2020 - Exam #: [id number] Bilateral CC and MLO view(s) were taken. Technologist: Yessy Samayoa, Technologist Prior study comparison: February 14, 2019, bilateral digital woman screen mammo performed at [facility]. January 21, 2018, bilateral digital woman screen mammo performed at [facility]. FINDINGS: The breast tissue is heterogeneously dense. This may lower the sensitivity of mammography. There has been no change in the appearance of the mammogram from the prior studies. There is a moderate amount of residual fibroglandular tissue which is fairly symmetric. There is no interval development of dominant mass, areas of architectural distortion, or clustered microcalcification typical of malignancy. Assessment: BI-RADS/ACR category 1 mammogram. Negative Mammogram. Recommendation Routine screening mammogram in 1 year (for women over age 40). This mammogram was interpreted with the aid of an FDA-approved computer-aided dectection system. Electronically Signed By: Aidan Lagos MD 02/16/20 [id number]
== END ==
LOC: M WHC 09:58
PROVIDERS: ATTEND Registered Nurse
DX: Z12.31 Encounter for screening mammogram for malignant neoplasm of breast (principal)

== ENCOUNTER → 2021-02-21 | Outpatient (CLI) | payer MEDICARE, OTHER ==
--- NOTE | 2021-02-21 11:50 | REPMRS ---
Patient History The patient states she had a clinical breast exam in September 2020. No known family history of cancer. Took estrogen for 20 years. Tomosynthesis is performed. Volpara breast density is b. [facility] lifetime risk of breast cancer 4.7%. Patient states no breast complaints today. Patient has signed MRS History Sheet. Digital Woman Screen Mammo: February 21, 2021 - Exam #: [id number] Bilateral CC and MLO view(s) were taken. Technologist: Yessy Samayoa Technologist Prior study comparison: February 16, 2020, bilateral digital woman screen mammo performed at [facility]. February 14, 2019, bilateral digital woman screen mammo performed at [facility]. FINDINGS: The breast tissue is heterogeneously dense. This may lower the sensitivity of mammography. There has been no change in the appearance of the mammogram from the prior studies. There is a moderate amount of residual fibroglandular tissue which is fairly symmetric. There is no interval development of dominant mass, areas of architectural distortion, or clustered microcalcification typical of malignancy. Assessment: BI-RADS/ACR category 1 mammogram. Negative Mammogram. Recommendation Routine screening mammogram in 1 year (for women over age 40). This mammogram was interpreted with the aid of an FDA-approved computer-aided dectection system. Electronically Signed By: Aidan Lagos MD 02/21/21 [id number]
--- NOTE | 2021-02-21 16:40 | DEXAMM ---
INDICATION: OSTEOPOROSIS, ASYMPTOMATIC. COMPARISON: 07/25/2007, 02/14/2002. TECHNIQUE: Bone density was measured using dual-energy x-ray absorptiometry (DEXA). FINDINGS: AP SPINE L1-L4 BMD 1.116 g/cm2 Young Adult T-Score -0.6 Age Matched Z-Score 1.0. LT FEMUR, TOTAL BMD 0.981 g/cm2 Young Adult T-Score -0.2 Age Matched Z-Score 1.1. LT NECK BMD 0.948 g/cm2 Young Adult T-Score -0.6 Age Matched Z-Score 0.9. RT FEMUR, TOTAL BMD 0.978 g/cm2 Young Adult T-Score -0.2 Age Matched Z-Score 1.1. RT NECK BMD 0.937 g/cm2 Young Adult T-Score -0.7 Age Matched Z-Score point. IMPRESSION: There is normal bone density of the spine. There is normal bone density of the left hip. There is normal bone density of the right hip. The density of the spine has decreased 5.8% since the initial exam on 02/14/2002. The density of the spine decreased 10.8% since most recent exam on 07/25/2007. The density of the left hip has decreased 1.8% since initial exam on 02/14/2002. The density of the left hip has decreased 4.8% since most recent exam on 07/25/2007. The density of the right hip has decreased 1.3% since the initial exam on 02/14/2002. The density of the right hip has decreased 4.7% since the most recent exam on 07/25/2007. FOLLOW-UP: Recommendation for the next bone density exam: 5 years. <Electronically signed by Aidan Lagos > 02/21/21 1119
== END ==
LOC: M WHC 09:34
PROVIDERS: ATTEND Registered Nurse
DX: Z12.31 Encounter for screening mammogram for malignant neoplasm of breast (principal); Z13.820 Encounter for screening for osteoporosis; E55.9 Vitamin D deficiency, unspecified; E28.319 Asymptomatic premature menopause

== ENCOUNTER → 2022-02-22 | Outpatient (CLI) | payer MEDICARE, OTHER | LOC: M WHC 09:11 | PROVIDERS: ATTEND Internal Medicine | DX: Z12.31 Encounter for screening mammogram for malignant neoplasm of breast (principal) ==

== ENCOUNTER → 2023-03-13 | Outpatient (CLI) | payer MEDICARE, OTHER | LOC: M WHC 07:43 | PROVIDERS: ATTEND Internal Medicine | DX: R92.8 Other abnormal and inconclusive findings on diagnostic imaging of breast (principal); R92.332 Mammographic heterogeneous density, left breast | CPT/HCPCS: 76642; 77065; G0279 ==

== ENCOUNTER → 2024-02-14 | Outpatient (CLI) | payer MEDICARE, OTHER ==
[~2024-02-14] MED LIST changes: +IRBE75TA11 PO; -IRBE75TA4 PO
== END ==
LOC: M WUC 12:12
PROVIDERS: ATTEND Internal Medicine
DX: R07.81 Pleurodynia (principal)

== ENCOUNTER → 2024-03-19 | Outpatient (CLI) | payer MEDICARE, OTHER | LOC: M WHC 10:26 | PROVIDERS: ATTEND Internal Medicine | DX: Z12.31 Encounter for screening mammogram for malignant neoplasm of breast (principal); R92.333 Mammographic heterogeneous density, bilateral breasts ==

== ENCOUNTER 2024-09-01 09:57 | Emergency (ER) | payer MEDICARE, OTHER ==
[~2024-09-01] VITALS: Ht 152.4 cm; Wt 72.6 kg
[2024-09-01] MEDS: METOCLOPRAMIDE INJ 10MG/2ML VIAL IV ONE (13:23)
[2024-09-01] MEDS: KETOROLAC 30 MG/ML 1ML VIAL IV ONE (13:24)
[2024-09-01] MEDS: ACETAMINOPHEN 500 MG TAB PO ONE (13:24)
[2024-09-01] MEDS: NS (Normal Saline) 0.9% 1,000 ML IV ONE (13:25)
[2024-09-01 13:39] LABS: BASO # 0.1 10^3/uL (0.0-0.2); EOS # 0.3 10^3/uL (0.0-0.5); EOS % 3.6 % (0.0-3.0); HEMATOCRIT 40.5 % (36.0-47.0); HEMOGLOBIN 13.1 g/dl (12.0-15.5); LYMPH # 2.6 10^3/uL (1.5-5.0); LYMPH % 29.1 % (24.0-44.0); MEAN CORPUSCULAR HEMOGLOBIN 30.8 pg (27.0-33.0); MEAN CORPUSCULAR HGB CONC 32.3 g/dl (32.0-36.5); MEAN CORPUSCULAR VOLUME 95.1 fl (80.0-96.0); MONO # 0.6 10^3/uL (0.0-0.8); MONO % 6.9 % (2.0-8.0); NEUTROPHILS # 5.3 10^3/uL (1.5-8.5); NEUTROPHILS % 58.8 % (36.0-66.0); PLATELET COUNT, AUTOMATED 325 10^3/uL (150-450); RED BLOOD COUNT 4.26 10^6/uL (4.00-5.40)
[2024-09-01 17:14] VITALS: BP 167/77; TEMP 97.7; O2SAT 98
== END 2024-09-01 17:34 | disposition home or self-care (01) ==
LOC: M ED 09:57
DX: M50.20 Other cervical disc displacement, unspecified cervical region (principal); R51.9 Headache, unspecified; I10 Essential (primary) hypertension; E78.5 Hyperlipidemia, unspecified; F32.A Depression, unspecified; Z87.01 Personal history of pneumonia (recurrent); M85.88 Other specified disorders of bone density and structure, other site; Z79.899 Other long term (current) drug therapy; Z88.0 Allergy status to penicillin; Z88.8 Allergy status to other drugs, medicaments and biological substances
CPT/HCPCS: 70450; 70544; 70551; 72125; 72141; 80047; 85025; 96361; 96374; 96375; 99283; J1885; J2765

== ENCOUNTER → 2025-03-26 | Outpatient (CLI) | payer MEDICARE, OTHER | LOC: M WHC 11:42 | PROVIDERS: ATTEND Internal Medicine | DX: Z12.31 Encounter for screening mammogram for malignant neoplasm of breast (principal); R92.333 Mammographic heterogeneous density, bilateral breasts ==

== ENCOUNTER → 2025-03-27 | Outpatient (CLI) | payer MEDICARE, OTHER | LOC: M CARPUL 08:36 | PROVIDERS: ATTEND Internal Medicine Cardiovascular Disease | DX: I27.20 Pulmonary hypertension, unspecified (principal); I08.0 Rheumatic disorders of both mitral and aortic valves ==